=== PATIENT | female | born 1965 | race Caucasian/White ===

== ENCOUNTER 2019-03-12 15:16 | Emergency (ER) | payer OTHER, BC ==
[~2019-03-12] VITALS: Ht 170.2 cm; Wt 147.4 kg
[~2019-03-12 15:16] MED LIST: HYDROCODONE-AP1 EAC6 PO
[2019-03-12] MEDS ORDERED: COZAAR 25 MG TA25 M1 PO (15:20)
[2019-03-12] MEDS ORDERED: METFORMIN HCL500 M3 PO (15:20)
[2019-03-12] MEDS ORDERED: HYDROCHLOROTH12.5 M1 PO (15:20)
[2019-03-12] MEDS ORDERED: MELOXICAM7.5 MG PO (15:20)
[2019-03-12] MEDS ORDERED: EFFEXOR XR150 MG PO (15:21)
[2019-03-12] MEDS ORDERED: EFFEXOR XR75 MG PO (15:21)
[2019-03-12] MEDS ORDERED: LIPITOR 20 MG T20 M1 PO (15:24)
[2019-03-12] MEDS ORDERED: ONDANSETRON HCL4 M2 PO (16:25)
[2019-03-12] MEDS ORDERED: NORCO 5-325 TA1 EAC1 PO (16:25)
[2019-03-12 17:02] VITALS: BP 144/91
== END 2019-03-12 17:02 | disposition home or self-care (01) ==
LOC: M.ERS 15:16
DX: S80.02XA Contusion of left knee, initial encounter (principal); Z98.890 Other specified postprocedural states; Z88.5 Allergy status to narcotic agent; Z88.8 Allergy status to other drugs, medicaments and biological substances; W01.0XXA Fall on same level from slipping, tripping and stumbling without subsequent striking against object, initial encounter; Y93.89 Activity, other specified; Y92.89 Other specified places as the place of occurrence of the external cause; Y99.8 Other external cause status